=== PATIENT | female | born 1955 | race Two or more races ===

== ENCOUNTER 2020-10-19 23:40 | Emergency (ER) | payer OTHER ==
[~2020-10-19] VITALS: Ht 160 cm; Wt 99.3 kg
[2020-10-19 23:58] VITALS: BP 155/97
== END 2020-10-20 03:39 | disposition home or self-care (01) ==
LOC: ER 23:44
DX: I10 Essential (primary) hypertension (principal); J45.909 Unspecified asthma, uncomplicated; F41.9 Anxiety disorder, unspecified; Z88.5 Allergy status to narcotic agent

== ENCOUNTER 2020-11-21 00:11 | Emergency (ER) | payer OTHER ==
[~2020-11-21] VITALS: Ht 161.3 cm; Wt 103.0 kg
--- NOTE | 2020-11-21 00:49 | NUR ---
PATIENT CAME TO THE ER BED 1 C/O HIGH BLOOD PRESSURE AT AROUND 2100. HX OF ANXIETY. PATIENT STATES THAT SHE HAD GONE TO SEE HER PRIMARY CARE DOCTOR, BUT THE DOCTOR DID NOT WANT TO START HER ON BLOOD PRESSURE MEDICATION AND WANTED TO HAVE HER RETURN TO THE PCP WHEN PT'S BLOOD PRESSURE IS HIGH AGAIN. PT STATES SHE WILL SEE HER DOCTOR IN NOVEMBER, BUT WILL CALL HER PCP THIS MONDAY. PATIENT IS AAOX4. NO SOB. BREATHING EVENLY AND UNLABORED ON ROOM AIR. CONNECTED TO THE MONITOR.
--- NOTE | 2020-11-21 01:01 | NUR ---
COMPLIANCE ASSISTANT AT BEDSIDE FOR BLOOD DRAW.
[2020-11-21 01:10] LABS: BASOPHILS # (AUTO) 0.1 /CMM (0.0-0.2); BASOPHILS % (AUTO) 1.1 % (0.0-2.0); EOSINOPHILS % (AUTO) 3.5 % (0.0-6.0); HEMATOCRIT 40 % (33-45); HEMOGLOBIN 13.3 g/dL (11.5-14.8); LYMPHOCYTES # (AUTO) 1.8 /CMM (0.8-4.8); LYMPHOCYTES % (AUTO) 35.8 % (20.0-44.0); MEAN CORPUSCULAR HGB CONC 33 g/dl (31.0-36.0); MEAN CORPUSCULAR VOLUME 89 fL (82-100); MONOCYTES # (AUTO) 0.3 /CMM (0.1-1.30); MONOCYTES % (AUTO) 5.7 % (2.0-12.0); NEUTROPHILS # (AUTO) 2.7 /CMM (1.8-8.9); NEUTROPHILS % (AUTO) 53.9 % (43.0-81.0); PLATELET COUNT (AUTO) 278 /CMM (150-450); RED BLOOD CELL COUNT(AUTO) 4.53 MIL/uL (4.0-5.2); WHITE BLOOD COUNT (AUTO) 4.9 K/uL (4.3-11.0)
--- NOTE | 2020-11-21 01:19 | NUR ---
XRAY AT BEDSIDE.
[2020-11-21 01:36] LABS: CALCIUM, SERUM 8.8 mg/dL (8.5-10.1); CARBON DIOXIDE 27 mmol/L (21-32); CHLORIDE 102 mmol/L (98-107); CREATININE 0.9 mg/dL (0.6-1.3); GLUCOSE 104 mg/dL (74-106); POTASSIUM 3.7 mmol/L (3.5-5.1); SODIUM SERUM 141 mmol/L (136-145); UREA NITROGEN, BLOOD 14 mg/dL (7-18)
[2020-11-21] MEDS ORDERED: CLONIDINE HCL 0.1 MG TABLET ONE (02:01)
[2020-11-21] MEDS: CLONIDINE HCL 0.1 MG TABLET PO ONE (02:03)
[2020-11-21 04:25] VITALS: BP 155/78
== END 2020-11-21 04:25 | disposition home or self-care (01) ==
LOC: ER 00:11
DX: I10 Essential (primary) hypertension (principal); R00.2 Palpitations; F41.9 Anxiety disorder, unspecified; Z88.5 Allergy status to narcotic agent
CPT/HCPCS: 36415; 71045-TC; 80048-TC; 84484-TC; 85025-TC

== ENCOUNTER 2022-09-27 19:53 | Emergency (ER) | payer MEDICARE, OTHER ==
[~2022-09-27] VITALS: Ht 160 cm; Wt 83.9 kg
--- NOTE | 2022-09-27 20:34 | NUR ---
BIBS C/O SEVERE LEFT SIDED ABDOMINAL PAIN SINCE AM RADIATING TO BILAT LOWER BACK +NAUSEA. PT A/OX4. TOLERATING R/A WELL WTIH NO RESP DISTRESS. CONNECTED PT TO POX AND MONITOR. SAFETY MEASURES IN PLACE.
[2022-09-27] MEDS ORDERED: ONDANSETRON HCL/PF 4 MG/2 ML VIAL ONE (20:51)
[2022-09-27] MEDS ORDERED: IV NS 0.9% 1,000 ML BAG IV ONE (21:00)
[2022-09-27] MEDS ORDERED: ONDANSETRON HCL/PF 4 MG/2 ML VIAL IVP ONE (21:00)
[2022-09-27] MEDS ORDERED: FAMOTIDINE/PF INJ 20 MG/2 ML VIAL IV ONE (21:00)
--- NOTE | 2022-09-27 21:02 | NUR ---
URINE COLLECTED AND SENT TO LAB
--- NOTE | 2022-09-27 21:03 | NUR ---
BLOOD COLLECTED AND SENT TO LAB
--- NOTE | 2022-09-27 21:07 | NUR ---
[facility] EMBROIDERY DIGITIZER AT PT'S BEDSIDE
[2022-09-27 21:21] LABS: BASOPHILS % (AUTO) 0.2 % (0.0-2.0); EOSINOPHILS % (AUTO) 0.5 % (0.0-6.0); HEMATOCRIT 40 % (33-45); LYMPHOCYTES # (AUTO) 1.1 K/uL (0.8-4.8); LYMPHOCYTES % (AUTO) 18.4 % (20.0-44.0); MEAN CORPUSCULAR HGB CONC 32 g/dl (31.0-36.0); MEAN CORPUSCULAR VOLUME 88 fL (82-100); MONOCYTES # (AUTO) 0.2 K/uL (0.1-1.30); MONOCYTES % (AUTO) 3.3 % (2.0-12.0); NEUTROPHILS # (AUTO) 4.6 K/uL (1.8-8.9); NEUTROPHILS % (AUTO) 77.6 % (43.0-81.0); PLATELET COUNT (AUTO) 287 K/uL (150-450); RED BLOOD CELL COUNT(AUTO) 4.55 MIL/uL (4.0-5.2); WHITE BLOOD COUNT (AUTO) 5.9 K/uL (4.3-11.0)
[2022-09-27 21:46] LABS: BILIRUBIN,URINE NEGATIVE (NEGATIVE); COLOR,URINE YELLOW (YELLOW); LEUKOCYTE ESTERASE ,URINE TRACE (NEGATIVE); NITRITE, URINE NEGATIVE (NEGATIVE); PROTEIN,URINE NEGATIVE (NEGATIVE); UGLUCOSE NEGATIVE (NEGATIVE)
[2022-09-27 22:07] LABS: ALANINE AMINOTRANSFERASE 11 U/L (12-78); ALKALINE PHOSPHATASE 61 U/L (46-116); ASPARTATE AMINOTRANSFERASE 17 U/L (15-37); BILIRUBIN,DIRECT 0.1 mg/dL (0.0-0.2); BILIRUBIN,TOTAL 0.6 mg/dL (0.2-1.0); CALCIUM, SERUM 9.1 mg/dL (8.5-10.1); CARBON DIOXIDE 25 mmol/L (21-32); CHLORIDE 101 mmol/L (98-107); CREATININE 0.8 mg/dL (0.6-1.3); GLUCOSE 105 mg/dL (74-106); LIPASE 99 U/L (73-393); SODIUM SERUM 137 mmol/L (136-145); TOTAL PROTEIN, SERUM 7.1 g/dL (6.4-8.2); UREA NITROGEN, BLOOD 14 mg/dL (7-18)
--- NOTE | 2022-09-27 22:23 | NUR ---
PT TAKEN TO CT VIA [facility]
[2022-09-27] MEDS ORDERED: IV NS 0.9% 250 ML IV ONE (22:28)
[2022-09-27] MEDS ORDERED: IOHEXOL-300 100 ML VIAL IV ONE (22:28)
--- NOTE | 2022-09-27 22:32 | NUR ---
PT RETURNED TO ER [address]
[2022-09-27] MEDS ORDERED: KETOROLAC TROMETHAMINE INJ 30 MG/ML VIAL ONE (22:36)
[2022-09-27 22:44] LABS: BACTERIA,URINE Few /HPF (None Seen)
[2022-09-27 22:45] LABS: SQUAMOUS EPITHELIAL CELL,UR Few /HPF (None Seen)
[2022-09-27] MEDS ORDERED: NITR100C6 PO (22:53)
[2022-09-27] MEDS ORDERED: KETOROLAC TROMETHAMINE INJ 30 MG/ML VIAL IV ONE (23:00)
[2022-09-27 23:13] VITALS: BP 149/84
== END 2022-09-27 23:14 | disposition home or self-care (01) ==
LOC: ER 19:57
DX: N39.0 Urinary tract infection, site not specified (principal); I10 Essential (primary) hypertension; J45.909 Unspecified asthma, uncomplicated; F41.9 Anxiety disorder, unspecified; E11.9 Type 2 diabetes mellitus without complications; Z88.5 Allergy status to narcotic agent
CPT/HCPCS: 99285; 74177; 96374; 71045; 96375; 96361; 93005; 85025; 80048; 87086 ×2; 83690; 80076; 81001; 36415; 84484; J1885; J2405; J7050; Q9967